=== PATIENT | female | born 1970 | race Caucasian/White ===

== ENCOUNTER 2024-05-14 09:42 | Emergency (ER) | payer MEDICAID, OTHER ==
[~2024-05-14] VITALS: Ht 165.1 cm; Wt 86.0 kg
[2024-05-14 09:48] VITALS: O2SAT 94
[2024-05-14] MEDS ORDERED: ACET-2708 MT (10:42)
[2024-05-14] MEDS: ACETAMINOPHEN 325MG TABLET PO ONE (10:50)
[2024-05-14 12:16] VITALS: BP 179/91; PULSE 74; RESP 16; TEMP 37.1; O2SAT 99
== END 2024-05-14 12:18 | disposition home or self-care (01) ==
LOC: ER 09:49
DX: R51.9 Headache, unspecified (principal); E78.00 Pure hypercholesterolemia, unspecified; I10 Essential (primary) hypertension
CPT/HCPCS: 81025; 99284